=== PATIENT | male | born 1945 | race Caucasian/White ===

== ENCOUNTER → 2022-05-06 | Day surgery (SDC) | payer MEDICARE, OTHER ==
[~2022-05-06] MED LIST: ASPIRIN81 MG PO; ATENOLOL50 MG PO; ATORVASTATIN CA20 MG PO; ELIQUIS5 MG PO; OR PHACO EYE KIT ONE; PREOP PHACO EYE KIT ONE; SINEMET 25-1001 EACH PO
[2022-05-06 11:46] LABS: BASOPHILS % 0.4 % (0.0-1.0); EOSINOPHILS # (AUTO) 0.1 (0.0-0.4); EOSINOPHILS % 1.8 % (0.0-6.0); HEMATOCRIT 42.1 % (38.2-49.6); HEMOGLOBIN 13.1 g/dL (14.0-18.0); LYMPHOCYTES # (AUTO) 1.2 (1.0-3.2); LYMPHOCYTES % 23.5 % (18.0-39.1); MEAN CORPUSCULAR HEMOGLOBIN 27.6 pg (28-32); MEAN CORPUSCULAR HGB CONC 31.1 g/dL (31-35); MEAN CORPUSCULAR VOLUME 88.8 fL (81-99); MONOCYTES # (AUTO) 0.8 (0.2-0.8); MONOCYTES % 14.6 % (4.4-11.3); NEUTROPHILS % 58.5 % (38.7-80.0); PLATELET COUNT 124 x10e3/uL (140-360); RED BLOOD COUNT 4.74 x10e6/uL (4.3-5.7); RED CELL DISTRIBUTION WIDTH 13.5 % (11.7-14.4)
[2022-05-06 13:40] VITALS: BP 140/73
== END | disposition home or self-care (01) ==
LOC: OR 10:27
PROVIDERS: ATTEND Ophthalmology
DX: H25.11 Age-related nuclear cataract, right eye (principal); I48.0 Paroxysmal atrial fibrillation; I10 Essential (primary) hypertension; G20 Parkinson's disease; Z79.02 Long term (current) use of antithrombotics/antiplatelets; Z79.82 Long term (current) use of aspirin; Z79.899 Other long term (current) drug therapy; Z86.73 Personal history of transient ischemic attack (TIA), and cerebral infarction without residual deficits
CPT/HCPCS: 36415; 85025

== ENCOUNTER → 2022-05-20 | Day surgery (SDC) | payer OTHER, MEDICARE ==
[~2022-05-20] MED LIST changes: +PREDNISONE1 MG PO
[2022-05-20 09:00] VITALS: BP 126/67
== END | disposition home or self-care (01) ==
LOC: OR 08:05
PROVIDERS: ATTEND Ophthalmology
DX: H25.12 Age-related nuclear cataract, left eye (principal); G47.33 Obstructive sleep apnea (adult) (pediatric); I10 Essential (primary) hypertension; Z79.02 Long term (current) use of antithrombotics/antiplatelets; Z79.899 Other long term (current) drug therapy
CPT/HCPCS: 93005; V2632